=== PATIENT | female | born 1985 | race African-American/Black ===

== ENCOUNTER 2017-12-18 21:22 | Emergency (ER) | payer OTHER ==
[~2017-12-18] VITALS: Ht 167.6 cm; Wt 53.1 kg
[~2017-12-18 21:22] MED LIST: AMOXICILLIN 50500 MG PO; CIPROFLOXACIN500 M1 PO; COLACE 100 MG100 MG PO; FLAGYL500 MG PO; IBUPROFEN 800800 M1 PO; IRON325 PO; LIDOCAINE 22 %/30 GM TOP; MACROBID 100 M100 M1 PO; MOBIC7.5 MG PO; NOHOMEMEDICATIONS; NORCO 5-325 TA1 EACH PO; Norco PO; PHENERGAN 25 MG25 M1 PO; PRENATAL; PRENATAL COMPL1 EACH PO; ZOFRAN ODT4 MG PO
[2017-12-19 00:07] LABS: HEMATOCRIT 35.2 % (37.0-47.0); HEMOGLOBIN 11.8 gm/dL (12.0-15.0); MCH 31.6 pg (26.0-34.0); MCHC 33.6 g/dL (28.0-37.0); MCV 94.2 fL (80.0-100.0); RBC 3.74 mil/uL (4.20-5.00); RDW 15.8 % (10.5-14.5); WBC 5.1 thou/uL (4.0-11.0)
[2017-12-19 00:11] LABS: CALCIUM 8.4 mg/dL (8.5-10.1); POTASSIUM 3.9 mmol/L (3.5-5.1)
[2017-12-19 00:41] VITALS: BP 96/60
== END 2017-12-19 00:42 | disposition home or self-care (01) ==
LOC: ER 21:22
PROVIDERS: Emergency Medicine
DX: N93.8 Other specified abnormal uterine and vaginal bleeding (principal); Z87.891 Personal history of nicotine dependence

== ENCOUNTER 2018-05-16 11:53 | Emergency (ER) | payer OTHER ==
[~2018-05-16] VITALS: Ht 167.6 cm; Wt 54.4 kg
[2018-05-16 12:39] VITALS: BP 110/76
== END 2018-05-16 12:40 | disposition home or self-care (01) ==
LOC: ER 11:53
DX: J02.8 Acute pharyngitis due to other specified organisms (principal)